=== PATIENT | female | born 1940 | race Caucasian/White ===

== ENCOUNTER → 2017-04-14 | Outpatient (CLI) | payer MEDICARE ==
[~2017-04-14] MED LIST: AMLODIPINE BESYL5 MG PO; DICLOXAXILLIN250 MG PO; FORTAMET1000 MG/B1 PO; GLIPIZIDE10 MG PO; HYDROCHLOROTHIA25 MG PO; LEVOXYL125 MC1 PO; LORTAB 5/500 TA1 TA1 PO; MEDI-MECLIZINE25 M1 PO; MOBIC PO; PIOGLITAZONE45 MG PO; ZESTRIL40 MG PO
--- NOTE | ~2017-04-14 | MY11 ---
[facility] A Service of [facility] RADIOLOGY TEXT RESULTS PATIENT: MIREILLE BANKS LOCATION: [facility] : 36 UNIT #: [id number] AGE: [address]: Ping Saucedo MD SEX: F ORDER DR: [id number] [address] [id number] O MR#: [id number] Acc #: [id number] NAME: MIREILLE BANKS : 1940 SEX: F STUDY DATE/TIME: 04/14/2017 10:31 UNIT: [facility] ROOM: STUDY DESCRIPTION: MY Mammogram Screening Dig Jordin Attending Physician: Ping Saucedo M.D. Referring Physician: Ping Saucedo M.D. Ordering Physician: Ping Saucedo M.D. Primary Care Physician: Ping Saucedo M.D. MEDICAL IMAGING REPORT This report is preliminary unless electronic signature is present. EXAM Bilateral digital screening mammogram with CAD DATE: 04/14/2017 HISTORY No documented personal or family history of breast cancer or current complaints. COMPARISON Bilateral screening mammogram 03/28/2016, 03/09/2015, 12/09/2013. FINDINGS CC and MLO views were obtained of each breast utilizing digital technique and reviewed with an FDA-approved CAD device. Scattered fibroglandular densities are present bilaterally, greatest in the upper outer left breast, without significant change. Benign-appearing lymph node is seen in the posterior superior left breast, unchanged. No new or suspicious nodule, architectural distortion or clustered microcalcification is seen. IMPRESSION 1. BIRADS 2. Benign findings. Routine bilateral screening mammogram is recommended in year. Patients over the age of 40 are entered into a reminder system with target due date for the next mammogram. A result letter will also be sent to the patient. BIRADS: 2 - benign findings [facility] A Service [facility] RADIOLOGY TEXT RESULTS PATIENT: MIREILLE BANKS LOCATION: [facility] : 36 UNIT #: [id number] AGE: [address]: Ping Saucedo MD SEX: F ORDER DR: Dictated by... Melinda Hearn M.D. THIS IS AN ELECTRONICALLY VERIFIED REPORT Melinda Hearn M.D. at 04/15/2017 8:59 AM Monica/lori TD: 04/14/2017 13:01 JOB #: [id number] MEDICAL IMAGING REPORT Page 1 of 1
== END | disposition home or self-care (01) ==
LOC: SMAM 09:33
DX: Z12.31 Encounter for screening mammogram for malignant neoplasm of breast (principal)
CPT/HCPCS: G0202